=== PATIENT | male | born 1950 | race Caucasian/White ===

== ENCOUNTER 2025-06-24 08:26 | Outpatient (OUT) | payer MEDICARE, OTHER, BC, SELFPAY ==
--- NOTE | 2025-06-24 09:05 | PM.CN ---
Consult Note: HPI Data of Consult Patient: new to practice Consult date: 06/24/25 Requesting Physician: May Spann NP Primary Care Provider: VICTOR MANUEL LEATHA Consult Narrative Reason for consult: cervical radiculopathy Narrative: Victor Manuel Lombardi a pleasant 75 year old male presents for evaluation and management of cervical radiculopathy. Pt noting pain around 8 month ago without injury or cause, has been following with neurology who completed an EMG of BUE and MRI of cervical spine which is consistent with multilevel stenosis and DDD. Pt notes pain 9/10 sharp intermittently in neck and collarbone area. Pt has failed tylenol, cannot take NSAIDs as he is on pradaxa. Has not trialed post acute care nurse or physical therapy. Notes pain flares up for 5-6 hours and improves for a few days on its own. cc:: CC: May Spann NP Review of Systems ROS Musculoskeletal Denies: neck pain or extremity pain Exam Constitutional Documenting provider has reviewed patient's vital signs: yes Common normals: no apparent distress, oriented x3, healthy appearing, alert and well nourished General appearance: cooperative HENMT Common normals: normocephalic, hearing grossly normal bilaterally and moist oral mucous membranes Head and scalp: normocephalic Eye Common normals: PERRL Pupil: PERRL Neck & C-Spine Common normals: full ROM General: normal visual inspection Cervical spine: cervical ROM not abnormal, no pain with cervical ROM and no cervical spine tenderness Other: intermittent C4,5,6 radiculopathy sensation intact BUE strength 5/5 in BUE Chest Common normals: inspection of chest normal Respiratory Common normals: normal respiratory effort, no retractions and no use of accessory muscles Neuro Common normals: oriented x3 Sensorium/orientation: alert Psych Common normals: mental status grossly normal, thought process normal, cooperative, affect normal, speech normal and activity/motor behavior normal Speech: normal speech Thought process: normal thought process Results Additional Findings Additional findings: If on a controlled substance or opioids, I have checked an OARRS report on this patient and there are no aberrancies noted in the prescribing history.??If on a controlled substance or opioid a drug screen was completed and reviewed within the last year, and if there has not been a drug screen completed we ordered one today to monitor higher risk, state monitored pain medication use. As part of providing excellent, safe, comprehensive care, the following was completed at our patient's visit: 1. A medication reconciliation and review to ensure accurate knowledge of current/active medications, including asking our patients to inform us about any uoiw-igx-uskmfcz medications or herbal remedies/nutritional supplements/alternative remedies. 2. A review to specifically ensure our patients have had annual screening for screening for depression, screening for tobacco use, and screening for unhealthy alcohol use. For concerning screenings had a discussion with the patient, provided patient education, and recommended follow-up with primary care provider when appropriate. If patient noted with a risk of falling, they received education on strength, gait, and balance training to prevent future risk of falling. Portions of this note may have been carried over from the previous visit and updated as appropriate. Please note this office utilizes paper charting in addition to the electronic medical record. A list of current medications, vitals, and PMH is available there as the clinical staff outside of myself do not have access to [employer] charting during the clinic day operations. As part of providing quality comprehensive care the current medications, vitals, and PMH were reviewed in the paper chart. Assessment and Plan Assessment and Plan (1) Cervical radiculopathy: (2) Cervical spinal stenosis: (3) Degenerative cervical disc: Plan 75 year old male with intermittent cervical radiculopathy secondary to cervical DDD and stenosis. Recommend pt trial PT at this time. information provided on cervical TFESIs if symptoms persist. defer NS consultation as pt does not have significant deficits/pain on exam. f/u 1 month to evaluate response to PT.
== END 2025-06-24 08:27 | disposition home or self-care (01) ==
LOC: PM 08:26
PROVIDERS: PCP Family Medicine; Visit Provider Nurse Practitioner
DX: M54.12 Radiculopathy, cervical region (principal); M48.02 Spinal stenosis, cervical region
CPT/HCPCS: G0463

== ENCOUNTER 2025-08-26 10:05 | Outpatient (OUT) | payer MEDICARE, OTHER, BC, SELFPAY ==
--- OUTSIDE RECORDS SUMMARY | 2025-08-26 10:07 | XMS_ITS | Clinical Summary ---
Author Organization [facility] Address [address] [place] [address] Care Team Providers Care Medical Laboratory Scientist Name Role Phone Victor Manuel Santoro MD Primary Care Provider [phone] Beatriz Vital Unavailable Allergies No known active allergies Medications MedicationSigDispense QuantityRefillsLast FilledStart DateEnd DateStatus cholecalciferol (Vitamin D-3) 25 MCG (1000 UT) capsule Take 1,000 Units by mouth Daily07/15/2024ctive dabigatran etexilate (Pradaxa) 150 MG capsule Take 150 mg by mouth in the morning and 150 mg before bedtime.07/19/2024ctive doxycycline (Vibramycin) 100 MG capsule Take 100 mg by mouth in the morning and 100 mg before bedtime.07/19/2024ctive metoprolol succinate XL (Toprol-XL) 25 MG 24 hr tablet Take 25 mg by mouth Daily07/19/2024ctive traZODone (Desyrel) 50 MG tablet Take 50 mg by mouth at fnfoocz8807/19/2024ctive cefdinir (Omnicef) 300 MG capsule Take 300 mg by mouth in the morning and 300 mg before bedtime.07/19/2024ctive Active Problems No known active problems Family History Medical HistoryRelationNameCommentsStrokeFatherRelationNameStatusCommentsFather Social History Tobacco UseTypesPacks/DayYears UsedDateSmoking Tobacco: FormerCigarettes Smokeless Tobacco: Never Tobacco Cessation:Counseling Given: Not Answered Alcohol UseStandard Drinks/WeekCommentsNot Currently0 (1 standard drink = 0.6 oz pure alcohol)Sex and Gender InformationValueDate RecordedSex Assigned at Not on fileLegal LqoOgpp85/ 9:25 AM EDTGender IdentityNot on fileSexual OrientationNot on file Last Filed Vital Signs Vital SignReadingTime TakenCommentsBlood Ytpjsjyb021/80002/12/2025 8:44 AM EDT Uxyjx4810/22/2025 8:44 AM EDTTemperature--Respiratory Rate--Oxygen Ssdvbbllfm59% 02/12/2025 8:44 AM EDTInhaled Oxygen Concentration--Eeoddr72.6 kg (180 lb) 02/12/2025 8:44 AM PGUWxdtxf865.8 cm (5' 10 )02/12/2025 8:44 AM EDTBody Mass Index25.8302/12/2025 8:44 AM EDT Plan of Treatment Health MaintenanceDue DateLast DoneCommentsPneumococcal Vaccine: 65+ Years (2 of 2 - PCV20 or PCV21), 07/08/2014COVID-19 Vaccine ( season)506/05/2022, 09/13/2021, 12/09/2020, Additional history exists Influenza Vaccine (#1)2022, 05/25/2022, 07/03/2021, Additional history exists Insurance Care Teams Team MemberRelationshipSpecialtyStart DateEnd Date Victor Manuel Santoro MD [address] [place], [place] [id number] PCP - GeneralFamily Dlpkoial45/30/24 Beatriz Vital PA [address] [place] [address] Physician AssistantNeurology2
--- OUTSIDE RECORDS SUMMARY | 2025-08-26 10:07 | XMS_ITS | Clinical Summary ---
Author Organization [facility] Address [address] [place] [address] Phone Care Team Providers Care Mule Operator Name Role Phone Victor Manuel Santoro DO Primary Care Provider [phone] Allergies No known active allergies Medications MedicationSigDispense QuantityRefillsLast FilledStart DateEnd DateStatus traZODone (Desyrel) 50 mg tablet Take 0.5 tablets (25 mg) by mouth as needed at bedtime for sleep.09/12/2024 Active vit A/vit C/vit E/zinc/copper (PRESERVISION AREDS ORAL) Take by mouth.Active FOLIC ACID ORAL Take by mouth.Active cholecalciferol (Vitamin D3) 25 MCG (1000 UT) capsule Take 1 capsule (25 mcg) by mouth once daily.Active Pradaxa 150 mg capsule Indications:Paroxysmal atrial fibrillation (Multi)TAKE 1 TABLET BY MOUTH TWICE DAILY 180 capsule 5Active metoprolol succinate XL (Toprol-XL) 25 mg 24 hr tablet Indications:Atrial fibrillation, unspecified type (Multi)TAKE 1 TABLET DAILY DO NOT CRUSH OR CHEW 90 tablet 5Active metoprolol succinate XL (Toprol XL) 25 mg 24 hr tablet Indications:Atrial fibrillation, unspecified type (Multi)Take 1 tablet (25 mg) by mouth once daily. Do not crush or chew. 90 tablet Discontinued Active Problems ProblemNoted DateDiagnosed DateLong term (current) use of anticoagulants 2025 Assessment & Plan (05/28/2025 9:36 AM EDT): CHADS VASc 2 chronically anticoagulated pradaxa Denies bleeding diathesis BMI 24.0-24.9, adult10/03/2024Paroxysmal atrial hqqdvmpkrpyd47/10/2025 Assessment & Plan (05/28/2025 9:36 AM EDT): Jun 2024 PAF in setting PNA Jun 2024 TTE EF 60-65% LA normal MR trace Denies palpitations Former mknwyg7410/03/2024 Encounters DateTypeDepartmentCare SnkwVillwhudmds66/04/2025Refill [facility] [address] [facility] [address] [place] [phone] Yoli Dias APRN-PULLING MACHINE OPERATOR Atrial fibrillation, unspecified type (Multi)2025 10:[address] [address] [facility] [address] [place] [address] Yoli Dias, COMIC ARTIST-PULLING MACHINE OPERATOR manager intermediate (current) use of anticoagulants (Primary Dx); Paroxysmal atrial fibrillation (Multi); BMI 24.0-24.9, adult; Former smoker Discharge Disposition: Home2025Travelfrom Last 3 Months Immunizations ImmunizationAdministration DatesNext DueTdap vaccine, age 7 year and older (BOOSTRIX, ADACEL)03/07/2024,09/24/2011,07/20/2010Zoster vaccine, recombinant, adult (SHINGRIX)09/20/2021,09/12/2019 Family History Medical HistoryRelationNameCommentsCancerBrotherStrokeFatherPulmonary fibrosis MotherCancerSisterRelationNameStatusCommentsBrotherFatherMotherSister Social History Tobacco UseTypesPacks/DayYears UsedDateSmoking Tobacco: FormerCigarettesQuit: 07/17/2024Smokeless Tobacco: NeverAlcohol UseStandard Drinks/WeekCommentsNot Currently0 (1 standard drink = 0.6 oz pure alcohol)Sex and Gender Information ValueDate RecordedSex Assigned at BirthNot on fileLegal DqlJipz24/26/2022 10:05 AM ESTGender IdentityNot on fileSexual OrientationNot on file Last Filed Vital Signs Vital SignReadingTime TakenCommentsBlood Goicrjun835/7009 9:59 AM EDT Dbyle540605/27/2025 9:59 AM EDTTemperature--Respiratory Rate--Oxygen Saturation-- Inhaled Oxygen Concentration--Gmfqwk09 kg (172 lb)2025 9:59 AM EDTHeight 177.8 cm (5' 10 )2025 9:59 AM EDTBody Mass Index24.68005/27/2025 9:59 AM EDT Plan of Treatment DateTypeDepartmentCare Team (Latest Contact Info)Cxyymfruzri64/09/[address]26 [address] [address] [facility] [address] [place] [phone] Yoli Dias, COMIC ARTIST-PULLING MACHINE OPERATOR [address] [facility] [address] [place] [address] Health MaintenanceDue DateLast DoneCommentsLipid Panel1949Medicare Annual Wellness Visit (AWV)1949Diabetes Scnaxqrqg46/03/1967Hepatitis C Screening 1967CKD: Urine Protein Cxvwpcuih55/03/1968Pneumococcal Vaccine (2 of 2 - PPSV23, PCV20, or PCV21), 07/08/2014RSV High Risk: (Elderly (60+) or Population) (1 - 1-dose 75+ series)2024Influenza Vaccine (#1)/08/2022, 05/25/2022, 07/03/2021, Additional history exists COVID-19 Vaccine (3 - season)501/02/2023, 03/02/2022 DTaP/Tdap/Td Vaccines (4 - Td or Tdap)/, 09/24/2011, 07/20/2010Zoster GhwnkojhGyrkiqnsi20/28/2021, 09/12/2019HIB VaccinesAged OutNo longer eligible based on patient's age to complete this topicHPV VaccinesAged OutNo longer eligible based on patient's age to complete this topicHepatitis A VaccinesAged OutNo longer eligible based on patient's age to complete this topic Hepatitis B VaccinesAged OutNo longer eligible based on patient's age to complete this topicIPV VaccinesAged OutNo longer eligible based on patient's age to complete this topicMeningococcal VaccineAged OutNo longer eligible based on patient's age to complete this topicRotavirus VaccinesAged OutNo longer eligible based on patient's age to complete this topic Insurance Care Teams Team MemberRelationshipSpecialtyStart DateEnd Date Victor Manuel Santoro DO [address] [place] [address] [facility] - [facility]10/03/24
--- OUTSIDE RECORDS SUMMARY | 2025-08-26 10:07 | XMS_ITS | Encounter Summary ---
Author Organization [employer] [facility] Address [facility] [id number] [address] [place] [address] Care Team Providers Care Cash Applications Analyst Name Role Phone Unavailable Primary Care Provider Unavailabl e Encounter Details DateTypeDepartmentCare Team (Latest Contact Info)Pbzbvmoanfx69/01/2025Travel Social History Tobacco UseTypesPacks/DayYears UsedDateSmoking Tobacco: Never AssessedChildcare AnswerDate VkpsyszsZibunfnatApkjttv04/12/2019EmploymentAnswerDate Recorded YeiyhudjqkWjdiyaw37/12/2019Sex and Gender InformationValueDate RecordedSex Assigned at BirthNot on fileLegal OxdDjks2204/29/2015 11:34 AM EDTGender Identity Not on fileSexual OrientationNot on filedocumented as of this encounter Plan of Treatment Not on file documented as of this encounter Visit Diagnoses Not on filedocumented in this encounter
--- OUTSIDE RECORDS SUMMARY | 2025-08-26 10:07 | XMS_ITS | Clinical Summary ---
Author Organization [employer] tem Address [facility] [id number] [address] [place] [address] Care Team Providers Care Sustainability Communicator Name Role Phone Unavailable Primary Care Provider Unavailabl e Encounters DateTypeDepartmentCare ZnsyHqnydxuethp69/01/9986Jyapjk65/30/2025Travelfrom Last 3 Months Social History Tobacco UseTypesPacks/DayYears UsedDateSmoking Tobacco: Never AssessedChildcare AnswerDate UgyqcvrhVjahrvdhsLuwihkv25/12/2019EmploymentAnswerDate Recorded TfcfidnixuVinkqdk96/12/2019Sex and Gender InformationValueDate RecordedSex Assigned at BirthNot on fileLegal KilUhbq4304/29/2015 11:34 AM EDTGender Identity Not on fileSexual OrientationNot on file Plan of Treatment Health MaintenanceDue DateLast DoneCommentsDepression Rcrdpeery30/03/1961Tobacco Hetkmmtdx89/03/1961Fall Risk Nkaykbdhm17/03/2014RSV ( or age 60+ yrs) (1 - 1-dose 75+ series)4COVID-19 Vaccine ( season)2025 09/29/2022, 03/02/2022, 09/13/2021, Additional history existsInfluenza Vaccine 05/25/2025DTaP,Tdap and Td Vaccines (4 - Td or Tdap), 09/24/2011, 07/20/2010Zoster (Shingles) IfvgefjRnpclweto33/28/2021, 09/12/2019 [employer] Not on file Insurance
--- NOTE | 2025-08-26 10:43 | PM.CN ---
Consult Note: HPI Data of Consult Patient: known to practice within the last 3 years Consult date: 08/26/25 Requesting Physician: May Spann NP Primary Care Provider: VICTOR MANUEL ZHANG Consult Narrative Reason for consult: cervical radiculopathy Narrative: Victor Manuel Lombardi a pleasant 75 year old male presents for evaluation and management of cervical radiculopathy. Pt noting pain around 10 months ago without injury or cause, has been following with neurology who completed an EMG of BUE and MRI of cervical spine which is consistent with multilevel stenosis and DDD. Pt notes pain 2/10 sharp intermittently in neck and collarbone area. Pt has failed tylenol, cannot take NSAIDs as he is on pradaxa. Has not trialed child care attendant school or physical therapy. Since last visit he has had mild pain, he has found significant benefit to PT and HEP. cc:: CC: May Spann NP Review of Systems ROS Musculoskeletal Reports: neck pain; Denies: extremity pain Meds Home Medications and Allergies Home Medications ?Medication ?Instructions ?Recorded ?Confirmed ?Type cholecalciferol (vitamin D3) 125 125 mcg PO BID 06/24/25 06/24/25 History mcg (5,000 unit) tablet (Vitamin D3) dabigatran etexilate 150 mg 150 mg PO BID 06/24/25 06/24/25 History capsule (Pradaxa) folic acid 1 mg tablet 1 mg PO DAILY 06/24/25 06/24/25 History metoprolol succinate 25 mg 25 mg PO DAILY 06/24/25 06/24/25 History tablet,extended release 24 hr trazodone 50 mg tablet 25 mg PO DAILY 06/24/25 06/24/25 History Allergies Allergy/AdvReac Type Severity Reaction Status Date / Time No Known Drug Allergies Allergy Verified 06/24/25 15:55 Exam Constitutional Documenting provider has reviewed patient's vital signs: yes Common normals: no apparent distress, oriented x3 and alert General appearance: cooperative HENMT Common normals: normocephalic, hearing grossly normal bilaterally and moist oral mucous membranes Head and scalp: normocephalic Eye Common normals: PERRL Pupil: PERRL Neck & C-Spine Common normals: full ROM General: normal visual inspection Cervical spine: cervical ROM not abnormal, no pain with cervical ROM and no cervical spine tenderness Other: sensation intact BUE strength 5/5 in BUE Chest Common normals: inspection of chest normal Respiratory Common normals: normal respiratory effort, no retractions and no use of accessory muscles Neuro Common normals: oriented x3 Sensorium/orientation: alert Psych Common normals: mental status grossly normal, thought process normal, cooperative, affect normal, speech normal and activity/motor behavior normal Speech: normal speech Thought process: normal thought process Results Additional Findings Additional findings: If on a controlled substance or opioids, I have checked an OARRS report on this patient and there are no aberrancies noted in the prescribing history.??If on a controlled substance or opioid a drug screen was completed and reviewed within the last year, and if there has not been a drug screen completed we ordered one today to monitor higher risk, state monitored pain medication use. As part of providing excellent, safe, comprehensive care, the following was completed at our patient's visit: 1. A medication reconciliation and review to ensure accurate knowledge of current/active medications, including asking our patients to inform us about any ieax-syk-vlgxmya medications or herbal remedies/nutritional supplements/alternative remedies. 2. A review to specifically ensure our patients have had annual screening for screening for depression, screening for tobacco use, and screening for unhealthy alcohol use. For concerning screenings had a discussion with the patient, provided patient education, and recommended follow-up with primary care provider when appropriate. If patient noted with a risk of falling, they received education on strength, gait, and balance training to prevent future risk of falling. Portions of this note may have been carried over from the previous visit and updated as appropriate. Please note this office utilizes paper charting in addition to the electronic medical record. A list of current medications, vitals, and PMH is available there as the clinical staff outside of myself do not have access to [employer] charting during the clinic day operations. As part of providing quality comprehensive care the current medications, vitals, and PMH were reviewed in the paper chart. Assessment and Plan Assessment and Plan (1) Cervical radiculopathy: Assessment and Plan: The patient has had over 3 months of moderate to severe neck pain with functional impairment and inadequate response to conservative care including NSAIDS (unless there are contraindication such as concurrent blood thinners), multiple oral or topical pain medications, and home exercise program/physical therapy.? Patient has completed >6 weeks of guided home exercise program and/or formal physical therapy program without relief of their symptoms.? (2) Cervical spinal stenosis: (3) Degenerative cervical disc: Plan 75 year old male with intermittent cervical radiculopathy secondary to cervical DDD and stenosis. continue HEP as tolerated. defer TFESIs and interventional therapy as pain is very well controlled. f/u PRN.
== END 2025-08-26 10:06 | disposition home or self-care (01) ==
LOC: PM 10:05
PROVIDERS: PCP Family Medicine; Visit Provider Nurse Practitioner
DX: M54.12 Radiculopathy, cervical region (principal); M48.02 Spinal stenosis, cervical region; M50.30 Other cervical disc degeneration, unspecified cervical region
CPT/HCPCS: G0463